=== PATIENT | female | born 1975 | race Caucasian/White ===

== ENCOUNTER → 2019-01-20 | Outpatient (CLI) | payer OTHER ==
[2019-01-20 12:19] LABS: HCT 44.3 % (34.0-46.0); HGB 14.7 gm/dL (11.4-16.0); MCH 30.1 pg (25.0-35.0); MCHC 33.2 g/dL (31.0-37.0); MCV 90.7 fL (80.0-100.0); Mean Platelet Volume 7.3; Platelet Count 334 k/uL (150-450); RBC 4.88 m/uL (3.80-5.40); RDW 13.3 % (11.5-15.5); WBC 5.9 k/uL (3.8-10.6)
[2019-01-20 15:17] LABS: Erythrocyte Sedimentation Rate 2 mm/hr (0-20)
[2019-01-20 16:45] LABS: Ferritin 107.6 ng/mL (10.0-291.0)
[2019-01-20 16:46] LABS: Iron Saturation 31.07 (12.00-45.00); Rheumatoid Factor <4 IU/mL (0-15)
[2019-01-20 17:56] LABS: ALT 15 U/L (8-44); AST 15 U/L (13-35); African American GFR (CKD) 127.6 (60.0-200.0); Albumin/Globulin Ratio 2.32 (1.60-3.17); Alkaline Phosphatase 52 U/L (41-126); BUN/Creat Ratio 21.67 Ratio (12.00-20.00); C Reactive Protein <0.4 mg/dL (0.0-0.8); Calcium 9.7 mg/dL (8.7-10.3); Carbon Dioxide 24.7 mmol/L (21.6-31.8); Chloride 107 mmol/L (96-109); Globulin 1.9 g/dL (1.6-3.3); Glucose 90 mg/dL (70-110); Magnesium 1.9 mg/dL (1.5-2.4); Potassium 3.9 mmol/L (3.5-5.5); Sodium 140 mmol/L (135-145); Total Bilirubin 0.4 mg/dL (0.3-1.2); Total Protein 6.3 g/dL (6.2-8.2)
[2019-01-21 11:38] LABS: ANA Pattern Speckled
== END | disposition home or self-care (01) ==
LOC: LABWHC1 11:12
PROVIDERS: ATTEND Physician Assistant Medical
DX: M79.10 Myalgia, unspecified site (principal); R53.83 Other fatigue; H53.10 Unspecified subjective visual disturbances; R44.8 Other symptoms and signs involving general sensations and perceptions
CPT/HCPCS: 36415; 80053; 82607; 82728; 83540; 83550; 83735; 84439; 84443; 85027; 85652; 86038; 86039; 86140; 86431

== ENCOUNTER → 2019-02-25 | Outpatient (CLI) | payer OTHER ==
[2019-02-25 13:49] LABS: African American GFR (CKD) >90 (>60 ml/min/1.73 sqM); Blood Urea Nitrogen 13 mg/dL (7-17)
--- NOTE | 2019-02-26 02:50 | MR ---
EXAMINATION TYPE: MR brain wo/w con DATE OF EXAM: 02/25/2019 COMPARISON: 12/16/2009 HISTORY: MS TECHNIQUE: Multiplanar, multisequence images of the brain and brainstem is performed without and with IV contras t, utilizing 6.5 mL intravenous Gadavist . FINDINGS: Ventricles have normal size. There is no mass effect nor midline shift. There is no sign of intracran ial hemorrhage. There is no evidence of cortical infarct. There is no evidence of any significant cer ebral edema. There is a 4 mm focus of increased signal at the domínguez-white matter junction right pariet al lobe on the FLAIR images. The brainstem is intact. Sella turcica appears normal. Corpus callosum a ppears normal. There is no evidence of cortical infarct. The contrast images show no pathologic enhan cement. There is normal enhancement of the venous sinuses. Skull base appears normal. IMPRESSION: Negative MR scan of the brain. No evidence of demyelinating disease. Small focus of incre ased signal right parietal lobe of doubtful significance. Overall no adverse change compared to old e xam.
== END | disposition home or self-care (01) ==
LOC: RADMRIMAIN 12:39
PROVIDERS: ATTEND Psychiatry & Neurology Neurology
DX: D49.6 Neoplasm of unspecified behavior of brain (principal); G35 Multiple sclerosis
CPT/HCPCS: 82565; 84520; 70553; A9585

== ENCOUNTER 2021-11-29 07:48 | Day surgery (SDC) | payer OTHER ==
[2021-11-27 13:22] VITALS: BMI 28.3
[~2021-11-29 07:48] MED LIST: LACTATED RINGERS 1,000 ML IV SCH
[2021-11-29 08:26] VITALS: TEMP 97.3
[2021-11-29 08:40] LABS: Glucose,Whole Blood 92 mg/dL (70-110)
[2021-11-29] MEDS ORDERED: LIDOCAINE 2% INJ 20 MG/ML (2 ML VIAL) ONE (09:19)
[2021-11-29] MEDS ORDERED: PROPOFOL 10 MG/ML 20 ML VIAL IV ONE (09:19)
--- NOTE | 2021-11-29 09:34 | P.PCN ---
Date of Procedure: 11/29/21 Procedure(s) Performed: BRIEF HISTORY: Patient is a 46-year-old, pleasant, white female scheduled for an upper endoscopy as a part of evaluation of severe epigastric burning pain for the last few months duration. Recently was started on Protonix 40 mg daily with some improvement in his symptoms. She is scheduled for an upper endoscopy to evaluate further. PROCEDURE PERFORMED: Esophagogastroduodenoscopy with biopsy. PREOPERATIVE DIAGNOSIS: Severe epigastric pain of 3 months duration. IV sedation per anesthesia. PROCEDURE: After informed consent was obtained, the patient was brought into the endoscopy unit. IV sedation was administered by Anesthesia under continuous monitoring. Initially the Olympus GIF-140 video endoscope was inserted into the mouth. Esophagus intubated without any difficulty. It was gradually advanced into the stomach and duodenum and carefully examined. The bulb and the second part of the duodenum appeared normal. The scope at this time was withdrawn to the stomach, adequately insufflated with air, and upon careful examination, mucosa of the antrum, had scattered erosions and diffuse gastritis and biopsies were done from this area. The body, cardia and the fundus appeared normal. The scope was then withdrawn into the esophagus. The GE junction was located at 39 cm from the incisors. The esophagus appeared normal. There were no erosions or ulcerations seen , biopsies were done from the esophagus and the patient tolerated the procedure well. IMPRESSION: 1. Antral erosive gastritis. 2. Normal-appearing esophagus with no evidence of esophagitis or Ramírez's esophagus. RECOMMENDATIONS: The findings of this examination were discussed with the patient as well as her family. She was advised to follow with the biopsy results. She will continue with Protonix 40 mg daily and follow antireflux measures. She will be seen in office in 6-8 weeks..
[2021-11-29 09:40] VITALS: RESP 16
[2021-11-29 10:03] VITALS: BP 110/58; PULSE 73
== END 2021-11-29 10:23 | disposition home or self-care (01) ==
LOC: ORWHC2ENDO 07:48
PROVIDERS: ATTEND Internal Medicine Gastroenterology
DX: K29.50 Unspecified chronic gastritis without bleeding (principal); K21.9 Gastro-esophageal reflux disease without esophagitis; M79.7 Fibromyalgia; Z79.899 Other long term (current) drug therapy; Z87.891 Personal history of nicotine dependence
CPT/HCPCS: 81025; 88305; 43239; J2704; J2001

== ENCOUNTER → 2022-05-22 | Outpatient (CLI) | payer OTHER ==
[2022-05-22 22:55] LABS: African American GFR (CKD) 121.4 (60.0-200.0); Albumin 4.6 g/dL (3.8-4.9); Albumin/Globulin Ratio 2.04 (1.60-3.17); Anion Gap 10.8 mmol/L (10.00-18.00); BUN/Creat Ratio 23.05 Ratio (12.00-20.00); Blood Urea Nitrogen 15.1 mg/dL (9.0-27.0); Calcium 9.1 mg/dL (8.7-10.3); Carbon Dioxide 24.1 mmol/L (20.0-27.5); Globulin 2.3 g/dL (1.6-3.3); Non-African American GFR(CKD) 104.7 (60.0-200.0); Potassium 4.1 mmol/L (3.5-5.5); Total Bilirubin 0.3 mg/dL (0.30-1.20); Total Protein 6.9 g/dL (6.2-8.2)
[2022-05-22 22:59] LABS: Basophils # (A) 0.04 X 10*3/uL (0.00-0.10); Basophils % (A) 0.5 %; Eosinophils % (A) 2.7 %; HCT 40.9 % (37.2-46.3); HGB 13.7 g/dL (12.0-15.0); Immature Grans, Automated 0.3 %; Lymphocytes # (A) 2.06 X 10*3/uL (0.90-5.00); Lymphocytes % (A) 27.5 %; MCH 30.7 pg (27.0-32.0); MCHC 33.5 g/dL (32.0-37.0); MCV 91.7 fL (80.0-97.0); Mean Platelet Volume 10.6 fL (9.5-12.2); Monocytes # (A) 0.54 X 10*3/uL (0.20-1.00); Monocytes % (A) 7.2 %; NRBC Per 100 WBC 0 /100 WBCS (0.0-0.0); Neutrophils # (A) 4.63 X 10*3/uL (1.80-7.70); Neutrophils % (A) 61.8 %; Platelet Count 316 X 10*3/uL (140-440); RBC 4.46 X 10*6/uL (4.10-5.20); RDW 12.1 % (11.5-14.5); WBC 7.49 X 10*3/uL (4.50-10.00)
== END | disposition home or self-care (01) ==
LOC: LABWHC1 15:24
PROVIDERS: ATTEND Family Medicine
DX: R22.9 Localized swelling, mass and lump, unspecified (principal)
CPT/HCPCS: 36415; 80053; 85025; 99203

== ENCOUNTER → 2022-06-01 | Outpatient (CLI) | payer OTHER ==
--- NOTE | 2022-06-01 08:18 | US ---
EXAMINATION TYPE: US extremity nonvasc complt RT DATE OF EXAM: 06/01/2022 COMPARISON: NONE CLINICAL HISTORY: D17.20 LIPOMATOUS NEOPLASM OF SKIN. Multiple tender lumps on right thigh FINDINGS: Right thigh 1. Upper lateral echogenic mass 1.1 x 0.65 x 1.9cm 2. Upper medial (lymph node) 1.4 x 0.59 x 1.4cm 3. Mid medial echogenic mass 0.97 x 0.65 x 1.6cm 4. Mid medial echogenic mass 1.6 x 0.63 x 1.9cm 5. Mid lateral echogenic mass 1.4 x 0.96 x 1.4cm Several circumscribed homogeneous hyperechoic masses demonstrated within the right thigh without colo r Doppler flow identified. Incidental prominent right thigh lymph node measuring 6 mm short axis. IMPRESSION: Several hyperechoic masses demonstrated within the right thigh favored to represent lipo mas as described above.
== END | disposition home or self-care (01) ==
LOC: RADUSWWP 07:31
PROVIDERS: ATTEND Family Medicine
DX: D17.20 Benign lipomatous neoplasm of skin and subcutaneous tissue of unspecified limb (principal); R22.41 Localized swelling, mass and lump, right lower limb

== ENCOUNTER → 2023-07-30 | Outpatient (CLI) | payer OTHER ==
--- NOTE | 2023-07-30 17:06 | MM ---
Reason for Exam: Screening (asymptomatic). Risk Values: Delia 5 year model risk: 0.6%. NCI Lifetime model risk: 6.1%. Staff Notes: Baseline Study. Tissue Density: There are scattered areas of fibroglandular density. Findings: Analyzed By CAD. Right breast 3 lateral aspect on CC view 4.0 cm nipple measuring 7 mm. Left breast: There is no suspicious group of microcalcifications or new suspicious mass. Overall Assessment: Incomplete: need additional imaging evaluation, BI-RAD 0 Management: Diagnostic Mammogram of the right breast. [facility] will attempt to contact patient to return for supplemental views and ultrasound if indicated. Patient should continue monthly self-breast exams. A clinical breast exam by your physician is recommended on an annual basis. This exam should not preclude additional follow-up of suspicious palpable abnormalities. Note on Delia scores and lifetime risk: 1. A Delia score greater than 3% is considered moderate risk. If this is the case, consider specialist referral to assess eligibility for a risk reducing agent. 2. If overall lifetime risk for the development of breast cancer is 20% or higher, the patient may qualify for future screening with alternating mammogram and breast MRI. Electronically signed and approved by: Jeff Garland DO
== END | disposition home or self-care (01) ==
LOC: RADMAMWWP 11:22
PROVIDERS: ATTEND Family Medicine
DX: Z12.31 Encounter for screening mammogram for malignant neoplasm of breast (principal)
CPT/HCPCS: 77067

== ENCOUNTER → 2023-08-01 | Outpatient (CLI) | payer OTHER ==
--- NOTE | 2023-08-02 10:58 | CA ---
Transthoracic Echo Report Name: Nicki Roger Age: 47 Gender: F : 1975 Exam Date: 08/01/2023 13:13 Exam Location: [facility] Ht (in): 59 Wt (lb): 147 Ordering Physician: Ranjan Naik DO Attending/Referring Phys: Program Management Analyst Fidelia Ross RDCS Procedure CPT: Indications: Z82.49 FAMILY HX OF ISCHEM HEART DIS AND OTH DIS O Cardiac Hx: Technical Quality: Fair Contrast 1: Total Dose (mL): Contrast 2: Total Dose (mL): MEASUREMENTS (Male / Female) Normal Values 2D ECHO LV Diastolic Diameter PLAX 4.4 cm 4.2 - 5.9 / 3.9 - 5.3 cm LV Systolic Diameter PLAX 2.7 cm IVS Diastolic Thickness 0.9 cm 0.6 - 1.0 / 0.6 - 0.9 cm LVPW Diastolic Thickness 0.8 cm 0.6 - 1.0 / 0.6 - 0.9 cm LV Relative Wall Thickness 0.4 RV Internal Dim ED PLAX 2.6 cm LA Systolic Diameter LX 3.8 cm 3.0 - 4.0 / 2.7 - 3.8 cm LV Diastolic Volume MOD BP 64.5 cm??? 67 - 155 / 56 - 104 cm??? LV Systolic Volume MOD BP 21.9 cm??? - 58 / 19 - 49 cm??? LV Ejection Fraction MOD BP 66.0 % >= 55 % LV Cardiac Index MOD BP 1660.5 cm???/min???m??? LV Diastolic Volume MOD 4C 62.3 cm??? LV Systolic Volume MOD 4C 19.8 cm??? LV Ejection Fraction MOD 4C 68.2 % LV Cardiac Index MOD 4C 1656.5 cm???/min???m??? LV Diastolic Length 4C 6.4 cm LV Systolic Length 4C 5.3 cm LV Diastolic Volume MOD 2C 66.9 cm??? LV Systolic Volume MOD 2C 23.7 cm??? LV Ejection Fraction MOD 2C 64.5 % LV Cardiac Index MOD 2C 1683.5 cm???/min???m??? LV Diastolic Length 2C 6.4 cm LV Systolic Length 2C 5.0 cm LA Volume 49.6 cm??? 18 - 58 / 22 - 52 cm??? LA Volume Index 29.3 cm???/m??? 16 - 28 cm???/m??? M-MODE Aortic Root Diameter MM 2.4 cm MV E Point Septal Separation 0.5 cm DOPPLER AV Peak Velocity 133.7 cm/s AV Peak Gradient 7.1 mmHg MV Area PHT 4.4 cm??? Mitral E Point Velocity 95.3 cm/s Mitral A Point Velocity 82.6 cm/s Mitral E to A Ratio 1.2 MV Deceleration Time 173.9 ms TR Peak Velocity 218.0 cm/s TR Peak Gradient 19.0 mmHg Right Ventricular Systolic Press 24.0 mmHg FINDINGS Left Ventricle Left ventricular ejection fraction is estimated at 55-60 %. Left ventricular cavity size normal. Left ventricular wall thickness normal. Normal left ventricular wall motion. Right Ventricle Normal right ventricular size. Right ventricular systolic pressure within normal limits. Right Atrium Normal right atrial size. Left Atrium Mildly increased left atrial volume. Mitral Valve Structurally normal mitral valve. No mitral stenosis or prolapse. Trace mitral regurgitation. Aortic Valve Trileaflet aortic valve. No aortic valve stenosis or regurgitation. Tricuspid Valve Structurally normal tricuspid valve. Mild tricuspid regurgitation. Pulmonic Valve Structurally normal pulmonic valve. Trace pulmonic regurgitation. Pericardium No pericardial effusion. Aorta Normal size aortic root and proximal ascending aorta. CONCLUSIONS Technically difficult study for interpretation Normal LV systolic function Previewed by: Dr. Raul Colin MD (Electronically Signed) Final Date: 02 August 2023 10:58
== END | disposition home or self-care (01) ==
LOC: RADECHMAIN 13:05
PROVIDERS: ATTEND Family Medicine
DX: Z82.49 Family history of ischemic heart disease and other diseases of the circulatory system (principal)
CPT/HCPCS: 93306

== ENCOUNTER → 2023-08-01 | Outpatient (CLI) | payer OTHER ==
--- NOTE | 2023-08-01 14:10 | MM ---
Reason for Exam: Additional evaluation requested from abnormal screening. Last screening mammogram was performed less than 1 month ago. Patient History: Menarche at age 11. First Full-Term at age 18. Postmenopausal. Patient has history of breast feeding. Risk Values: Delia 5 year model risk: 0.8%. NCI Lifetime model risk: 8.2%. Prior Study Comparison: 07/30/2023 Bilateral MG screening mammo w CAD, [facility]. Tissue Density: Right: There are scattered areas of fibroglandular density. Findings: Analyzed By CAD. While the questioned nodular asymmetric density outer aspect of the right breast anterior to middle depth seems to persist on the spot CC view, it disperses on the 3-D CC rolled view. No abnormality identified on the 3-D lateral view. Given appearance on the screening exam, a precautionary six-month follow-up is recommended. Overall Assessment: Probably benign, BI-RAD 3 Management: Diagnostic Mammogram of the right breast in 6 months. Results were given to the patient verbally at the time of exam. Patient should continue monthly self-breast exams. A clinical breast exam by your physician is recommended on an annual basis. This exam should not preclude additional follow-up of suspicious palpable abnormalities. Note on Delia scores and lifetime risk: 1. A Delia score greater than 3% is considered moderate risk. If this is the case, consider specialist referral to assess eligibility for a risk reducing agent. 2. If overall lifetime risk for the development of breast cancer is 20% or higher, the patient may qualify for future screening with alternating mammogram and breast MRI. Electronically signed and approved by: Miguel Landon M.D. Radiologist
[2023-08-01 18:12] LABS: HCT 43.1 % (37.2-46.3); HGB 14.4 g/dL (12.0-15.0); MCH 29.8 pg (27.0-32.0); MCHC 33.4 g/dL (32.0-37.0); Mean Platelet Volume 10.7 FL (9.5-12.2); NRBC Per 100 WBC 0 X 10*3/uL (0.00-0.01); Platelet Count 304 X 10*3/uL (140-440); RBC 4.84 X 10*6/uL (4.10-5.20); RDW 11.9 % (11.5-14.5); WBC 4.93 X 10*3/uL (4.50-10.00)
[2023-08-01 19:40] LABS: Chol/HDL Ratio 3.56 Ratio; LDL Cholesterol,Calculated 134.3 mg/dL (0.0-131.0); VLDL Calculation 16.02 mg/dL (5.00-40.00)
[2023-08-01 19:41] LABS: ALT 14 U/L (8-44); AST 18 U/L (13-35); Albumin 4.7 g/dL (3.8-4.9); Albumin/Globulin Ratio 1.96 Ratio (1.60-3.17); Alkaline Phosphatase 67 U/L (41-126); BUN/Creat Ratio 28.14 Ratio (12.00-20.00); Blood Urea Nitrogen 19.7 mg/dL (9.0-27.0); Calcium 10.1 mg/dL (8.7-10.3); Carbon Dioxide 24.4 mmol/L (21.6-31.8); Chloride 106 mmol/L (96-109); Globulin 2.4 g/dL (1.6-3.3); Glucose 84 mg/dL (70-110); Potassium 3.9 mmol/L (3.5-5.5); Sodium 143 mmol/L (135-145); Total Bilirubin 0.4 mg/dL (0.3-1.2); Total Protein 7.1 g/dL (6.2-8.2)
--- NOTE | 2023-08-02 12:40 | US ---
EXAMINATION TYPE: US duplex aorta DATE OF EXAM: 08/01/2023 COMPARISON: NONE CLINICAL INDICATION: Female, 47 years old with history of Z82.49 FAMILY HX ISCHEMIC HEART DISEASE; Fa ther has Hx AAA TECHNIQUE: Multiple sonographic images of the abdominal aorta are obtained. FINDINGS: EXAM MEASUREMENTS: Abdominal Aorta: Proximal: 1.6 x 1.8 cm Mid: 1.4 x 1.3 cm Distal: 1.5 x 1.7 cm Bifurcation: Right Iliac: 0.9 x 0.9 cm Left Iliac: 0.9 x 1.1 cm IMPRESSION: No sonographic evidence for AAA.
--- NOTE | 2023-08-02 15:29 | US ---
EXAMINATION TYPE: US axilla RT DATE OF EXAM: 08/01/2023 COMPARISON: NONE CLINICAL INDICATION: Female, 47 years old with history of R22.31 LOCALIZED SWELLING MASS AND LUMP RT LIMB; Lump in right axilla x years TECHNIQUE: Real-time ultrasound right axilla the symptomatic site. FINDINGS: Rehabilitation Clerk notes:? Excessive breast tissue in axilla Exam was painful for patient Provided images show no solid or cystic lesion or axillary lymphadenopathy. IMPRESSION: 1. Further clinical management of patient's right axillary swelling and tenderness. 2. Refer to recommendations on diagnostic mammogram performed same day.
--- NOTE | 2023-08-02 15:31 | US ---
EXAMINATION TYPE: US extremity nonvasc mass RT DATE OF EXAM: 08/01/2023 COMPARISON: 06/01/2022 CLINICAL INDICATION: Female, 47 years old with history of R22.41 SWELLING, MASS LUMP RT LOWER LIMB; H x Lipoma - recheck size TECHNIQUE: Targeted ultrasound examination at the area of concern anterior aspect of the upper thigh . FINDINGS: Patient Relations Director notes: Lipoma redemonstrated = 0.9 x 0.5 x 1.9 cm Previous = 1.1 x 0.7 x 1.9 cm Provided images show a circumscribed oval slightly echogenic lesion located within the subcutaneous a dipose layer at the area of concern. No other solid or cystic lesion. IMPRESSION: Fairly stable subcutaneous lipoma anterior upper thigh measuring 1.9 cm. If the area is symptomatic o r if growth is noted, surgical excision can be considered.
== END | disposition home or self-care (01) ==
LOC: RADUSWWP 07:37
PROVIDERS: ATTEND Family Medicine
DX: N63.11 Unspecified lump in the right breast, upper outer quadrant (principal); Z00.00 Encounter for general adult medical examination without abnormal findings; E66.3 Overweight; R22.41 Localized swelling, mass and lump, right lower limb; R22.31 Localized swelling, mass and lump, right upper limb; Z82.49 Family history of ischemic heart disease and other diseases of the circulatory system; Z13.6 Encounter for screening for cardiovascular disorders
CPT/HCPCS: 77061; 77065; 80053; 80061; 82306; 83036; 84443; 85027; 93979

== ENCOUNTER → 2024-05-25 | Outpatient (CLI) | payer OTHER ==
--- NOTE | 2024-05-25 12:54 | XR ---
EXAMINATION TYPE: XR chest 2V DATE OF EXAM: 05/25/2024 CLINICAL HISTORY: Other chest pain TECHNIQUE: Frontal and lateral views of the chest are obtained. COMPARISON: None FINDINGS: There is no focal air space opacity, pleural effusion, or pneumothorax seen. The cardiac silhouette size is within normal limits. The osseous structures are intact. IMPRESSION: No acute cardiopulmonary process. [facility], , 05/25/2024 12:51 PM
[2024-05-25 21:58] LABS: ALT 17 U/L (8-44); AST 15 U/L (13-35); Albumin 4.5 g/dL (3.8-4.9); Albumin/Globulin Ratio 2.25 Ratio (1.60-3.17); Alkaline Phosphatase 67 U/L (41-126); BUN/Creat Ratio 20.29 Ratio (12.00-20.00); Blood Urea Nitrogen 14.2 mg/dL (9.0-27.0); Calcium 9.4 mg/dL (8.7-10.3); Carbon Dioxide 27.3 mmol/L (21.6-31.8); Chloride 104 mmol/L (96-109); Glucose 94 mg/dL (70-110); Potassium 4.2 mmol/L (3.5-5.5); Sodium 142 mmol/L (135-145); Total Bilirubin 0.4 mg/dL (0.3-1.2); Total Protein 6.5 g/dL (6.2-8.2)
[2024-05-25 23:29] LABS: Basophils # (A) 0.03 X 10*3/uL (0.00-0.10); Basophils % (A) 0.5 %; Eosinophils # (A) 0.07 X 10*3/uL (0.04-0.35); Eosinophils % (A) 1.2 %; HCT 42.6 % (37.2-46.3); HGB 13.6 g/dL (12.0-15.0); Lymphocytes # (A) 2.06 X 10*3/uL (0.90-5.00); Lymphocytes % (A) 36.1 %; MCH 28.9 pg (27.0-32.0); MCHC 31.9 g/dL (32.0-37.0); MCV 90.4 FL (80.0-97.0); Monocytes # (A) 0.38 X 10*3/uL (0.20-1.00); Monocytes % (A) 6.7 %; NRBC Per 100 WBC 0 X 10*3/uL (0.00-0.01); Neutrophils # (A) 3.15 X 10*3/uL (1.80-7.70); Neutrophils % (A) 55.3 %; Platelet Count 313 X 10*3/uL (140-440); RBC 4.71 X 10*6/uL (4.10-5.20); RDW 11.7 % (11.5-14.5)
== END | disposition home or self-care (01) ==
LOC: LABWHC1 11:54
PROVIDERS: ATTEND Family Medicine
DX: R07.89 Other chest pain (principal)
CPT/HCPCS: 36415; 71046; 80053; 85025; 85379